=== PATIENT | female | born 1950 | race Caucasian/White ===

== ENCOUNTER 2016-09-24 11:52 | Emergency (ER) | payer BC ==
--- NOTE | 2016-09-24 11:42 | XRAY ---
Indication: Dyspnea on exertion. "Pounding heart.". Very low iron. Multiple contiguous axial images obtained through the chest using 80 cc Isovue 370 contrast and PE protocol. Comparison: None There is good opacification of the pulmonary arteries. There are nonoccluding pulmonary emboli in most of the segmental branches of all the lobes, right lung greater than left. Heart is not enlarged. Aorta is normal in course and caliber. Right suprahilar calcified node. No pathologic mediastinal/hilar lymphadenopathy. Small hiatal hernia. Examination of the lung parenchyma demonstrates minimal medial right lower lobe fibrosis/scarring. No suspicious pulmonary mass, infiltrate, consolidation, or effusion. Bony thorax intact with mild degenerative changes throughout the spine. Limited upper abdomen demonstrates splenic calcified granuloma. Impression: 1. Multiple nonoccluding bilateral pulmonary emboli. No distal pulmonary infarct. 2. Incidental small hiatal hernia and evidence for old granulomatous disease. Comment: Immediate telephone report was given to cross covering clinician, Erica Flores at 1132 hrs. on September 24, 2016. CT DI 28.08
[2016-09-24 12:19] LABS: Mean Cell Volume 83.3 fl (78-100); Mean Corpuscular Hemoglobin 24.5 pg (26-32); Mean Platelet Volume 10.6 fl (6-9.5); Platelet Count 285 K/mm3 (150-450); Red Blood Count 4.44 M/mm3 (4.1-5.4); White Blood Count 6.6 K/mm3 (4.0-10.5)
[2016-09-24 12:21] VITALS: O2SAT 97
[2016-09-24 12:35] LABS: INR 1.02 (0.8-3.0); PROTIME 11.5 SECONDS (9.95-12.35)
[2016-09-24 12:38] LABS: PTT 29.5 SECONDS (25.3-37.0)
[2016-09-24 12:43] LABS: ALBUMIN 3.6 g/dL (3.4-5.0); ALKALINE PHOSPHATASE 64 U/L (46-116); ANION GAP 15.3 MEQ/L (5-15); BLOOD UREA NITROGEN 25 mg/dL (9-20); CHLORIDE 104 mEq/L (98-107); Carbon Dioxide 24.9 mEq/L (21-32); Glucose 92 MG/DL (70-110); SGOT/AST 18 U/L (15-37); SGPT/ALT 21 U/L (12-78); SODIUM 140 mEq/L (136-145); Total Protein 7.3 gm/dL (6.4-8.2)
[2016-09-24 13:01] LABS: ANISOCYTOSIS 1+; BAND 2 % (0.0-2.0); Basophil 3 % (0.0-1.0); Eosinophil 4 % (0.00-3.0); Hypochromia 1+; Platelet Estimate NORMAL (NORMAL); Polychromasia 1+; Total Cells Counted 100
[2016-09-24] MEDS ORDERED: XARELTO 10 MG TABLET PO ONE (13:40)
--- NOTE | 2016-09-24 13:47 | ERPHSYRPT ---
- History of Present Illness Time Seen by Provider: 09/24/16 12:02 Source: patient, family () Patient Subjective Stated Complaint: BROUGHT OVER BY WC FROM [facility] FOR A DX OF PE , SOB FOR ABOUT A MONTH, WITH SOME WEAKNESS Triage Nursing Assessment: HERE FOR PE AND SHORTNESS OF BREATH Physician History: CC: pe Hx: 66 y/o patient of PRICILA Hedrick and Dr Díaz. She felt some SIU, chest tightness for the past one month. She was seen in office and attributed this to iron def. She had vacation in [place]- drove. Increased palpitations and some SIU and shortness of breath. Came today to have CTA and it was positive for multiple nonoccluding bilateral pulmonary emboli. No distal pulm infarct. She was sent to ER for evaluation. No new symptoms. She has remote hx of uterine CA 6 years ago. Has strong fam hx of thromboembolic disease in mother, sister, grandfather. She was tested negative for Factor V leidin def in the past. She tested positive for lupus anticoagulnat in the past. She has never been treated for DVT/PE. Allergies/Adverse Reactions: No Known Drug Allergies Allergy (Verified 09/24/16 12:15) Home Medications: Calcium Carb/Vit D3/Minerals [Calcium 600 + D Tablet] 2 each PO DAILY 01/18/12 [ History] Ferrous Sulfate [Iron] 325 mg PO DAILY 01/18/12 [History] Meloxicam 15 mg [Meloxicam 15 MG] 15 mg PO DAILY 01/18/12 [History] Potassium Chloride 10 Meq Tab* [Klor Con 10MEQ] 30 meq PO DAILY 01/18/12 [ History] Triamterene/Hydrochlorothiazid [Triamterene-Hctz 37.5-25 mg Cp] 1 each PO DAILY 01/18/12 [History] Verapamil HCl 360 mg PO DAILY 01/18/12 [History] Loratadine 10 mg [Claritin 10 mg] 10 mg DAILY 09/24/16 [History] Hx Tetanus, Diphtheria Vaccination/Date Given: Yes Hx Influenza Vaccination/Date Given: Yes Hx Pneumococcal Vaccination/Date Given: Yes (5 YEARS AGO) Immunizations Up to Date: Yes - Review of Systems Constitutional: Malaise, No Fever, No Chills Eyes: No Symptoms Ears, Nose, & Throat: No Symptoms Respiratory: Dyspnea on Exertion (SIU), No Cough Cardiac: Chest Pain, Palpitations Abdominal/Gastrointestinal: No Abdominal Pain All Other Systems: Reviewed and Negative - Past Medical History Pertinent Past Medical History: Yes Neurological History: No Pertinent History ENT History: No Pertinent History Cardiac History: Hypertension Respiratory History: No Pertinent History Endocrine Medical History: No Pertinent History Musculoskeletal History: Osteoarthritis GI Medical History: No Pertinent History History: No Pertinent History Psycho-Social History: No Pertinent History Female Reproductive Disorders: Uterine Cancer Other Medical History: BLOD DISORDER - Past Surgical History Past Surgical History: Yes Neuro Surgical History: No Pertinent History Cardiac: No Pertinent History Respiratory: No Pertinent History Gastrointestinal: No Pertinent History Genitourinary: No Pertinent History Musculoskeletal: Other Female Surgical History: Hysterectomy Other Surgical History: bunionectomy left foot and hammertoe left,right hammertoe, RIGHT FOOT SURGERY - Social History Smoking Status: Never smoker Exposure to second hand smoke: No Drug Use: none Patient Lives Alone: No - Female History Hx Last Menstrual Period: POST - Nursing Vital Signs Nursing Vital Signs: Initial Vital Signs Pulse Rate 63 Respiratory Rate 18 Blood Pressure [Left Arm] 147/67 Pain Intensity 0 - Physical Exam General Appearance: alert, other (pleasant lady) Eye Exam: PERRL/EOMI Ears, Nose, Throat Exam: normal ENT inspection, moist mucous membranes Neck Exam: normal inspection, non-tender, supple Respiratory Exam: normal breath sounds Cardiovascular Exam: regular rate/rhythm Gastrointestinal/Abdomen Exam: soft, No tenderness, No distention Extremity Exam: normal inspection, normal range of motion, No calf tenderness, No pedal edema Neurologic Exam: alert, oriented x 3, cooperative, electromedical equipment technician II-XII nml as tested, nml station & gait, sensation nml, No motor deficits Skin Exam: warm, dry, No rash SpO2 Interpretation: normal SpO2: 97 Oxygen Delivery: Room Air - Course Nursing assessment & vital signs reviewed: Yes EKG Interpreted by Me: RATE (61), Sinus Rhythm, NORMAL AXIS, NORMAL INTERVALS ( QTc 430), NORMAL QRS, NORMAL ST-T Ordered Tests: Active Orders 24 hr Category Date Time Status Behavioral Health Case Manager STAT Care 09/24/16 12:10 Active EKG-ER Only STAT Care 09/24/16 12:10 Active IV Insertion STAT Care 09/24/16 12:10 Active Pulse Oximetry (ED) STAT Care 09/24/16 12:10 Active CHEST WITH CONTRAST [CT] Routine Exams 09/24/16 Completed CBC W DIFF Stat Lab 09/24/16 12:00 Completed CMP Stat Lab 09/24/16 12:00 Completed Manual Differential NC Stat Lab 09/24/16 12:00 Completed PROTIME WITH INR Stat Lab 09/24/16 12:00 Completed PTT Stat Lab 09/24/16 12:00 Completed Lab/Rad Data: Laboratory Result Diagrams 09/24/16 12:00 09/24/16 12:00 Laboratory Results 09/24/16 09/24/16 09/24/16 Range/Units 12:00 12:00 12:00 WBC 6.6 (4.0-10.5) K/mm3 RBC 4.44 (4.1-5.4) M/mm3 Hgb 10.9 L (12.0-16.0) gm/dl Hct 37.0 (35-47) % MCV 83.3 (78-100) fl MCH 24.5 L (26-32) pg MCHC 29.5 L (32-36) g/dl Plt Count 285 (150-450) K/mm3 MPV 10.6 H (6-9.5) fl Segmented Neutrophils 62 (36.0-66.0) % Band Neutrophils 2 (0.0-2.0) % Lymphocytes (Manual) 21 L (24-44) % Monocytes (Manual) 8 (0.0-12.0) % Eosinophils (Manual) 4 H (0.00-3.0) % Basophils (Manual) 3 H (0.0-1.0) % Differential Comment ABNORMAL Platelet Estimate NORMAL (NORMAL) Polychromasia 1+ Hypochromasia 1+ Anisocytosis 1+ INR 1.02 (0.8-3.0) APTT 29.5 (25.3-37.0) SECONDS Sodium 140 (136-145) mEq/L Potassium 4.0 (3.5-5.1) mEq/L Chloride 104 (98-107) mEq/L Carbon Dioxide 24.9 (21-32) mEq/L Anion Gap 15.3 H (5-15) MEQ/L BUN 25 H (9-20) mg/dL Creatinine 0.92 (0.55-1.30) mg/dl Estimated GFR > 60 ML/MIN Glucose 92 (70-110) MG/DL Calcium 9.4 (8.5-10.1) mg/dL Total Bilirubin 0.40 (0.2-1.0) mg/dL AST 18 (15-37) U/L ALT 21 (12-78) U/L Alkaline Phosphatase 64 (46-116) U/L Serum Total Protein 7.3 (6.4-8.2) gm/dL Albumin 3.6 (3.4-5.0) g/dL - Progress Progress Note: 09/24/16 13:[address] Anderson who advised ok to follow up with Dr díaz since pt requests. He advised likely treat with xarelto. Called Dr Díaz and he advised start xarelto and office followup. Explained plan and findings to pt and . Discussed risks of bleeding, no good reversal agent with these blood thinners. Counseled pt/family regarding: lab results, diagnosis, need for follow-up, rad results - Departure Time of Disposition: 13:47 Departure Disposition: Home Clinical Impression: Pulmonary embolism Qualifiers: Pulmonary embolism type: other Chronicity: unspecified Acute cor pulmonale presence: without acute cor pulmonale Qualified Code(s): I26.99 - Other pulmonary embolism without acute cor pulmonale Condition: Stable Critical Care Time: No Referrals: JESS HEDRICK [Primary Care Provider] - YOVANNY DÍAZ [CONSULTING PHYSICIAN] - Instructions: Pulmonary Embolism, Rivaroxaban. Additional Instructions: Rx xarelto to start. Call Dr Díaz office to arrange follow up in 1-2 weeks. Follow up for anemia. Return for increased difficulty breathing or concerns. Stop meloxicam. Prescriptions: Rivaroxaban [Xarelto] 15 mg PO BID #42 tablet
[2016-09-24 13:58] VITALS: BP 132/75; PULSE 70
== END 2016-09-24 13:59 | disposition home or self-care (01) ==
LOC: ED 11:52 → EDSTATUS 11:52 → ED 13:59
DX: I26.99 Other pulmonary embolism without acute cor pulmonale (principal); R53.81 Other malaise; R06.09 Other forms of dyspnea; R07.9 Chest pain, unspecified; R00.2 Palpitations
CPT/HCPCS: 36000; 36415; 71260; 80053; 85025; 85610; 85730; 93005; 93041; 99283; A9270-GY

== ENCOUNTER 2016-10-18 11:47 | Day surgery (SDC) | payer BC ==
[~2016-10-18 11:47] MED LIST: DIPRIVAN 200 MG/20 ML IV ONE; Ketamine HCl 50 MG/ML IV ONE; Lactated Ringers 1,000 ML IV ONE; Lactated Ringers 1,000 ML IV SCH
[2016-10-18] MEDS ORDERED: Lactated Ringers 1,000 ML IV ONE (14:58)
--- NOTE | 2016-10-18 15:08 | OP ---
SURGERY DATE/TIME: 10/18/2016 1295 PREOPERATIVE DIAGNOSIS: Abdominal pain. POSTOPERATIVE DIAGNOSIS: Basically normal colonoscopic examination. There were moderate internal hemorrhoids. The rest of the examination was satisfactory. PROCEDURE: Colonoscopy complete to cecum. SURGEON: Felipe Olmos M.D. ANESTHESIA: MAC. COMPLICATIONS: None. CONDITION: Stable. INDICATION: A patient requiring evaluation. She had abdominal pain. She had nausea, vomiting and cramps. She has had pelvic radiation about five years ago. She had an EGD last week. DESCRIPTION OF PROCEDURE: She was taken to the endoscopy suite. Left lateral decubitus position. After suitable sedation obtained the scope advanced to the cecum. Base of the cecum and ileocecal valve was normal. Ascending, hepatic, transverse, splenic, descending was normal. Sigmoid normal. Rectum questionably minimally thickened post-radiation but not really discernible. There was moderate internal hemorrhoids otherwise satisfactory. IMPRESSION: Basically normal endoscopic examination except for internal hemorrhoids.
[2016-10-18 15:11] VITALS: O2SAT 97
[2016-10-18 15:32] VITALS: BP 137/76; PULSE 51
== END 2016-10-18 15:42 | disposition home or self-care (01) ==
LOC: SDC 11:47
PROVIDERS: ATTEND Surgery
PROC: 0DJD8ZZ Inspection of Lower Intestinal Tract, Via Natural or Artificial Opening Endoscopic (ICD-10-PCS; principal; 2016-10-18)
DX: K64.8 Other hemorrhoids (principal); D64.9 Anemia, unspecified
CPT/HCPCS: 00810; 45398; J2704

== ENCOUNTER 2018-02-14 11:39 | Emergency (ER) | payer MEDICARE, BC ==
[2018-02-14] MEDS ORDERED: SUBLIMAZE 100 MCG/2 ML IV ONE (11:44)
[2018-02-14] MEDS ORDERED: Zofran 4 MG/2 ML VIAL IV ONE (11:44)
[2018-02-14] MEDS ORDERED: Zofran 4 MG/2 ML VIAL ONE (11:58)
[2018-02-14] MEDS ORDERED: SUBLIMAZE 100 MCG/2 ML ONE (11:58)
--- NOTE | 2018-02-14 12:06 | ERPHSYRPT ---
- History of Present Illness Time Seen by Provider: 02/14/18 12:01 Source: patient Exam Limitations: no limitations Physician History: pt felt right knee cap dislocate laterally while in brace - no direct trauma but is scheduled for ortho surgery to meniscus in Dec did not fall Method of Injury: unknown Occurred: just prior to arrival Quality: constant, sharpness Severity of Pain-Max: severe Severity of Pain-Current: severe Lower Extremities Pain: knee: right Modifying Factors: Improves With: immobilization, movement Associated Symptoms: unable to bear weight, snapping sensation, popping sensation Allergies/Adverse Reactions: acetaminophen [From Vicodin] Adverse Reaction (Verified 02/14/18 12:14) Nausea and Vomiting hydrocodone [From Vicodin] Adverse Reaction (Verified 02/14/18 12:14) Nausea and Vomiting morphine Adverse Reaction (Verified 02/14/18 12:14) Nausea and Vomiting Home Medications: Potassium Chloride 10 Meq Tab* [Klor Con 10MEQ] 10 meq PO DAILY 01/18/12 [ History] Triamterene/Hydrochlorothiazid [Triamterene-Hctz 37.5-25 mg Cp] 37.5 each PO DAILY 01/18/12 [History] Verapamil HCl 360 mg PO DAILY 01/18/12 [History] Gabapentin [Neurontin] 600 mg PO HS 10/17/16 [History] Pantoprazole 20 mg [Protonix 20MG Tablet] 40 mg PO HS 10/17/16 [History] Rivaroxaban [Xarelto] 20 mg PO DAILY 10/17/16 [History] Valacyclovir HCl [Valacyclovir] 1,000 mg PO DAILY 10/17/16 [History] Acetaminophen [Acetaminophen Extra Strength] 500 mg PO DAILY 02/14/18 [History] Cetirizine HCl 10 mg PO DAILY 02/14/18 [History] Cholecalciferol (Vitamin D3) [D-2000] 2,000 unit PO DAILY 02/14/18 [History] Lisinopril [Zestril] 2.5 mg PO DAILY 02/14/18 [History] Melatonin 7.5 mg PO HS 02/14/18 [History] Omeprazole 20 MG [Prilosec 20 mg] 20 mg PO DAILY 02/14/18 [History] Hx Tetanus, Diphtheria Vaccination/Date Given: Yes Hx Influenza Vaccination/Date Given: Yes Hx Pneumococcal Vaccination/Date Given: Yes (5 YEARS AGO) - Review of Systems Constitutional: No Fever, No Chills Eyes: No Symptoms Ears, Nose, & Throat: No Symptoms Respiratory: No Cough, No Dyspnea Cardiac: No Chest Pain, No Edema, No Syncope Abdominal/Gastrointestinal: No Abdominal Pain, No Nausea, No Vomiting, No Diarrhea Genitourinary Symptoms: No Dysuria Musculoskeletal: Joint Pain, Joint Swelling, No Back Pain, No Neck Pain Skin: No Rash Neurological: No Dizziness, No Focal Weakness, No Sensory Changes Psychological: No Symptoms Endocrine: No Symptoms All Other Systems: Reviewed and Negative - Past Medical History Pertinent Past Medical History: Yes Neurological History: No Pertinent History ENT History: No Pertinent History Cardiac History: Hypertension Respiratory History: Pulmonary Embolism Endocrine Medical History: No Pertinent History Musculoskeletal History: Arthritis GI Medical History: No Pertinent History History: No Pertinent History Psycho-Social History: No Pertinent History Female Reproductive Disorders: Uterine Cancer Other Medical History: BLOD DISORDER - Past Surgical History Past Surgical History: Yes Neuro Surgical History: No Pertinent History Cardiac: No Pertinent History Respiratory: No Pertinent History Gastrointestinal: No Pertinent History Genitourinary: No Pertinent History Musculoskeletal: Other Female Surgical History: Hysterectomy Other Surgical History: bunionectomy left foot and hammertoe left,right hammertoe, RIGHT FOOT SURGERY (triple arthrodesis) - Social History Smoking Status: Never smoker Exposure to second hand smoke: No Drug Use: none Patient Lives Alone: No - Nursing Vital Signs Nursing Vital Signs: Initial Vital Signs Temperature 97.9 F 02/14/18 12:05 Pulse Rate 82 02/14/18 12:05 Blood Pressure 126/73 02/14/18 12:05 O2 Sat by Pulse Oximetry 95 02/14/18 12:05 Pain Scale Pain Intensity 6 - Physical Exam General Appearance: alert Eyes, Ears, Nose, Throat Exam: moist mucous membranes Neck Exam: non-tender, supple Cardiovascular/Respiratory Exam: chest non-tender, normal breath sounds, regular rate/rhythm, no respiratory distress Gastrointestinal/Abdominal Exam: non-tender, guarding Back Exam: normal inspection, No vertebral tenderness Hips Exam: bilateral: non-tender, normal inspection, normal range of motion, no evidence of injury Legs Exam: bilateral leg: non-tender, normal inspection, normal range of motion , no evidence of injury Knees Exam: right knee: bone tenderness, joint effusion, pain, soft tissue tenderness, swelling, left knee: non-tender, normal inspection, normal range of motion, no evidence of injury Ankle Exam: bilateral ankle: non-tender, normal inspection, normal range of motion, no evidence of injury Foot Exam: bilateral foot: non-tender, normal inspection, normal range of motion , no evidence of injury DTR - Lower Extremities Exam: knee (R): 2+, knee (L): 2+, ankle (R): 2+, ankle ( L): 2+ Neuro/Tendon Exam: normal sensation, normal motor functions Mental Status Exam: alert, oriented x 3, cooperative Skin Exam: normal color, warm, dry - Course Nursing assessment & vital signs reviewed: Yes - Radiology Exams Right Knee X-ray Interpretation: Interpreted by me, Reviewed by me, Other (concerning ofr nondisplaced superior patellar fx with subluxation; ) Ordered Tests: Active Orders 24 hr Category Date Time Status Immobilizer STAT Care 02/14/18 14:40 Active KNEE (3 VIEWS) Stat Exams 02/14/18 11:43 Completed Medication Summary Discontinued Medications Generic Name Dose Route Start Last Admin Trade Name Lazara PRN Reason Stop Dose Admin Fentanyl Citrate 75 mcg 02/14/18 11:44 02/14/18 11:59 Sublimaze 100 Mcg/2 Ml IV 02/14/18 11:45 75 mcg STAT ONE Administration Fentanyl Citrate Confirm 02/14/18 11:58 Sublimaze 100 Mcg/2 Ml Administered 02/14/18 11:59 Dose 100 mcg .ROUTE .STK-MED ONE Ondansetron HCl 4 mg 02/14/18 11:44 02/14/18 12:00 Zofran 4 Mg/2 Ml Vial IV 02/14/18 11:45 4 mg STAT ONE Administration Ondansetron HCl Confirm 02/14/18 11:58 Zofran 4 Mg/2 Ml Vial Administered 02/14/18 11:59 Dose 4 mg .ROUTE .STK-MED ONE - Progress Progress: improved, re-examined Progress Note: 02/14/18 15:25 discussed with pt various knee pathologies and options including consulting ortho and admission for pain control- she would like to try to make it on knee immobilizer and crutches and will return if any problems and will see her orth on saturday for recheck - discussed prob of meniscus and ligament injury and locking Counseled pt/family regarding: lab results, diagnosis, need for follow-up, rad results - Departure Time of Disposition: 15:27 Departure Disposition: Home Clinical Impression: right knee meniscus tear with locking an Condition: Good Critical Care Time: No Referrals: Provider,Unknown [Primary Care Provider] - Instructions: Internal Derangement of the Knee (DC), Meniscal Tear (DC), Dislocated Kneecap (DC) Additional Instructions: followup with your ortho dr this week and return meantime if any concenrs - including increased swelling , redness , fever, numbness or other concerns; Prescriptions: Tramadol HCl 50 mg [Ultram 50 mg] 50 mg PO Q8HPRN PRN #14 tablet PRN Reason: Pain
--- NOTE | 2018-02-14 12:39 | XRAY ---
Indication: Right knee pain. No known injury. Comparison: February 02, 2017. 3 views of the right knee again demonstrates mild osteopenia with new mild medial/lateral compartment degenerative joint space narrowing/spurring. No other bony, articular, or soft tissue abnormalities.
[2018-02-14 14:57] VITALS: BP 128/61; PULSE 73; O2SAT 98
== END 2018-02-14 16:05 | disposition home or self-care (01) ==
LOC: ED 11:39
DX: S83.206A Unspecified tear of unspecified meniscus, current injury, right knee, initial encounter (principal); Z79.899 Other long term (current) drug therapy
CPT/HCPCS: 73562; 96374; 96375; 99284; J2405; J3010; L1830

== ENCOUNTER 2019-03-07 10:09 | Emergency (ER) | payer MEDICARE, BC ==
[2019-03-07] MEDS ORDERED: Sodium Chloride 0.9% 1000 ML 1,000 ML IV STA (10:33)
[2019-03-07 10:49] LABS: Absolute Neutrophil Ct (ANC) 4.13 (1.4-6.9); BASOPHIL % 0.4 % (0.0-0.4); Basophil (Absolute #) 0.02 (0-0.4); Eosinophil % 2.8 % (0.00-5.0); Eosinophil (Absolute #) 0.15 (0-0.5); Hematocrit 43.2 % (35-47); Hemoglobin 13.7 gm/dl (12.0-16.0); Mean Cell Volume 94.5 fl (78-100); Mean Corpuscular Hgb Concent. 31.7 g/dl (32-36); Mean Platelet Volume 10.5 fl (6-9.5); Monocyte (Absolute #) 0.38 (0.0-1.3); Monocytes % 7.1 % (0.0-12.0); Neutrophil % 76.7 % (36.0-66.0); Platelet Count 203 K/mm3 (150-450); Red Blood Count 4.57 M/mm3 (4.1-5.4); Red Cell Distribution Width 14.5 % (11.5-14.0); White Blood Count 5.4 K/mm3 (4.0-10.5)
[2019-03-07] MEDS ORDERED: Sodium Chloride 0.9% 1000 ML 1,000 ML ONE (10:54)
[2019-03-07 11:02] LABS: INR 1.39 (0.8-3.0); PROTIME 15.8 SECONDS (9.95-12.35)
[2019-03-07 11:08] LABS: ALBUMIN 4.3 g/dL (3.5-5.0); BILIRUBIN,TOTAL 0.4 mg/dL (0.2-1.3); Creatinine 1 1.01 mg/dL (0.52-1.04); Potassium 3.9 mmol/L (3.5-5.1); Total Protein 7.7 g/dL (6.3-8.2)
--- NOTE | 2019-03-07 11:10 | ERPHSYRPT ---
- History of Present Illness Time Seen by Provider: 03/07/19 11:07 Source: patient, family Exam Limitations: no limitations Patient Subjective Stated Complaint: pt states about 0930 this AM her nose started bleeding after blowing her nose. Pt reports being on a blood thinner she takes HS and took last night. pt denies any ENT hx and or hx of nose bleeds. Pt states she was unable to get nose to stop bleeding. Triage Nursing Assessment: pt arrived holding a trash can about a 1/4 full of bloody tissues. right nares bleeding. Physician History: pt states about 0930 this AM her nose started bleeding after blowing her nose. Pt reports being on a blood thinner she takes HS and took last night. pt denies any ENT hx and or hx of nose bleeds. Pt states she was unable to get nose to stop bleeding. She is taking Xarelto 10 mg at HS Timing/Duration: abrupt onset Severity: moderate ENT Location: nose Prearrival Treatment: nasal packing Associated Symptoms: denies symptoms Allergies/Adverse Reactions: hydrocodone [From Vicodin] Adverse Reaction (Verified 03/07/19 10:29) Nausea and Vomiting morphine Adverse Reaction (Verified 03/07/19 10:29) Nausea and Vomiting Home Medications: Potassium Chloride 10 Meq Tab* [Klor Con 10MEQ] 5 meq PO DAILY 01/18/12 [History ] Triamterene/Hydrochlorothiazid [Triamterene-Hctz 37.5-25 mg Cp] 37.5 each PO DAILY 01/18/12 [History] Verapamil HCl 120 mg PO DAILY 01/18/12 [History] Gabapentin [Neurontin] 600 mg PO HS 10/17/16 [History] Pantoprazole 20 mg [Protonix 20MG Tablet] 40 mg PO HS 10/17/16 [History] Rivaroxaban [Xarelto] 20 mg PO DAILY 10/17/16 [History] Valacyclovir HCl [Valacyclovir] 2,000 mg PO DAILY 10/17/16 [History] Acetaminophen [Acetaminophen Extra Strength] 1,000 mg PO DAILY 02/14/18 [History ] Cetirizine HCl 10 mg PO DAILY 02/14/18 [History] Cholecalciferol (Vitamin D3) [D-2000] 2,000 unit PO DAILY 02/14/18 [History] Lisinopril [Zestril] 2.5 mg PO DAILY 02/14/18 [History] Melatonin 7.5 mg PO HS 02/14/18 [History] Omeprazole 20 MG [Prilosec 20 mg] 20 mg PO DAILY 02/14/18 [History] Hx Tetanus, Diphtheria Vaccination/Date Given: No Hx Influenza Vaccination/Date Given: Yes Hx Pneumococcal Vaccination/Date Given: No Immunizations Up to Date: Yes - Review of Systems Constitutional: No Fever, No Chills Eyes: No Symptoms Ears, Nose, & Throat: No Symptoms, Epistaxis (right anterior nostril) Respiratory: No Cough, No Dyspnea Cardiac: No Chest Pain, No Edema, No Syncope Abdominal/Gastrointestinal: No Abdominal Pain, No Nausea, No Vomiting, No Diarrhea Genitourinary Symptoms: No Dysuria Musculoskeletal: No Back Pain, No Neck Pain Skin: No Rash Neurological: No Dizziness, No Focal Weakness, No Sensory Changes Psychological: No Symptoms Endocrine: No Symptoms All Other Systems: Reviewed and Negative - Past Medical History Pertinent Past Medical History: Yes Neurological History: No Pertinent History ENT History: No Pertinent History Cardiac History: Other Respiratory History: Pulmonary Embolism Endocrine Medical History: No Pertinent History Musculoskeletal History: Arthritis GI Medical History: No Pertinent History History: No Pertinent History Psycho-Social History: No Pertinent History Female Reproductive Disorders: Uterine Cancer Other Medical History: RIGHT BRANCH BUNDLE BLOCKAGE. 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 - Past Surgical History Past Surgical History: Yes Neuro Surgical History: No Pertinent History Cardiac: No Pertinent History Respiratory: No Pertinent History Gastrointestinal: No Pertinent History Genitourinary: No Pertinent History Musculoskeletal: Other Female Surgical History: Hysterectomy Other Surgical History: bunionectomy left foot and hammertoe left,right hammertoe, RIGHT FOOT SURGERY (triple arthrodesis) Right knee replacement, torn rotator cuff repair - Social History Smoking Status: Never smoker Exposure to second hand smoke: No Drug Use: none Patient Lives Alone: No - Female History Hx Last Menstrual Period: years ago - Nursing Vital Signs Nursing Vital Signs: Initial Vital Signs Temperature 98.6 F 03/07/19 10:09 Pulse Rate 101 H 03/07/19 10:09 Respiratory Rate 20 03/07/19 10:09 Blood Pressure 133/85 03/07/19 10:09 O2 Sat by Pulse Oximetry 96 03/07/19 10:09 Pain Scale Pain Intensity 0 - Physical Exam General Appearance: no apparent distress, alert Eye Exam: bilateral eye: PERRL, EOMI Nasal Exam: normal inspection, dried blood Throat Exam: pharynx normal, moist mucus membranes, No tonsillar exudate Neck Exam: supple Cardiovascular/Respiratory Exam: normal breath sounds, regular rate/rhythm Abdominal Exam: non-tender, soft Neurologic Exam: alert, oriented x 3, sensation nml, No motor deficits Skin Exam: normal color, warm, dry SpO2: 96 - Course Nursing assessment & vital signs reviewed: Yes Ordered Tests: Active Orders 24 hr Category Date Time Status Apply Nose Clip STAT Care 03/07/19 10:33 Active CBC W DIFF Stat Lab 03/07/19 10:33 Completed CMP Stat Lab 03/07/19 10:33 Completed PROTIME WITH INR Stat Lab 03/07/19 10:33 Completed Medication Summary Discontinued Medications Generic Name Dose Route Start Last Admin Trade Name Freq PRN Reason Stop Dose Admin Sodium Chloride 1,000 mls @ 999 mls/hr 03/07/19 10:33 03/07/19 11:57 Sodium Chloride 0.9% 1000 Ml IV 03/07/19 11:33 Infused .Q1H1M STA Infusion Sodium Chloride Confirm 03/07/19 10:54 Sodium Chloride 0.9% 1000 Ml Administered 03/07/19 10:55 Dose 1,000 mls @ ud .ROUTE .K-MED ONE Lab/Rad Data: Laboratory Result Diagrams 03/07/19 10:33 03/07/19 10:33 Laboratory Results 03/07/19 03/07/19 03/07/19 Range/Units 10:33 10:33 10:33 WBC 5.4 (4.0-10.5) K/mm3 RBC 4.57 (4.1-5.4) M/mm3 Hgb 13.7 (12.0-16.0) gm/dl Hct 43.2 (35-47) % MCV 94.5 (78-100) fl MCH 30.0 (26-32) pg MCHC 31.7 L (32-36) g/dl RDW 14.5 H (11.5-14.0) % Plt Count 203 (150-450) K/mm3 MPV 10.5 H (6-9.5) fl Gran % 76.7 H (36.0-66.0) % Eos # (Auto) 0.15 (0-0.5) Absolute Lymphs (auto) 0.70 L (1.0-4.6) Absolute Monos (auto) 0.38 (0.0-1.3) Lymphocytes % 13.0 L (24.0-44.0) % Monocytes % 7.1 (0.0-12.0) % Eosinophils % 2.8 (0.00-5.0) % Basophils % 0.4 (0.0-0.4) % Absolute Granulocytes 4.13 (1.4-6.9) Basophils # 0.02 (0-0.4) PT 15.8 H (9.95-12.35) SECONDS INR 1.39 (0.8-3.0) Sodium 144 (137-145) mmol/L Potassium 3.9 (3.5-5.1) mmol/L Chloride 108 H (98-107) mmol/L Carbon Dioxide 26 (22-30) mmol/L Anion Gap 14.0 (5-15) MEQ/L BUN 25 H (7-17) mg/dL Creatinine 1.01 (0.52-1.04) mg/dL Estimated GFR 58.3 ML/MIN Glucose 103 (74-106) mg/dL Calcium 10.0 (8.4-10.2) mg/dL Total Bilirubin 0.40 (0.2-1.3) mg/dL AST 32 (14-36) U/L ALT 22 (0-35) U/L Alkaline Phosphatase 70 (38-126) U/L Serum Total Protein 7.7 (6.3-8.2) g/dL Albumin 4.3 (3.5-5.0) g/dL - Progress Progress: improved Progress Note: 03/07/19 11:09 gauze nasal packing applied in right nostril 03/07/19 12:06 nasal packs removed, bleeding has stopped. Another lubricant nasal pack applied. advised aboutremoving that nasal pack and check it for bleeding. I f oozing present then I teach him how to put another nasal pack. She is advised to hold xarelto for today. 03/07/19 13:44 Long nasal packing applied. Counseled pt/family regarding: lab results, diagnosis, need for follow-up - Departure Departure Disposition: Home Clinical Impression: Anterior epistaxis Condition: Stable Critical Care Time: No Referrals: MENDOZA MONZON NP [Primary Care Provider] - Instructions: Nosebleeds (DC) Additional Instructions: advise to keep nasal pack for six hours. Then I advised her to remove pack and look if still oozing, then applied another pack. Dont take Xarelto for today. Discharge/Care Plan BROOKE TARANGO was seen on 03/07/19 in the Emergency Room. The patient was counseled regarding Diagnosis,Lab results, Imaging studies, need for follow up and when to return to the Emergency Room. Prescriptions given: Discharge Note I have spoken with the patient and/or caregivers. I have explained the patient' s condition, diagnosis and treatment plan based on the information available to me at this time. I have answered the patient's and/or caregiver's questions and addressed any concerns. The patient and/or caregivers have as good understanding of the patient's diagnosis, condition and treatment plan as can be expected at this point. The vital signs have been stable. The patient's condition is stable and appropriate for discharge from the emergency department. The patient will pursue further outpatient evaluation with the primary care physician or other designated or consulting physician as outlined in the discharge instructions. The patient and/or caregivers are agreeable to this plan of care and follow-up instructions have been explained in detail. The patient and/or caregivers have received these instruction. The patient/and or caregivers are aware that any significant change in condition or worsening of symptoms should prompt an immediate return to this or the closest emergency department or call 911.
[2019-03-07 12:19] VITALS: BP 117/71; PULSE 68
[2019-03-07 13:45] VITALS: O2SAT 96
== END 2019-03-07 13:53 | disposition home or self-care (01) ==
LOC: ED 10:09
DX: R04.0 Epistaxis (principal); Z79.01 Long term (current) use of anticoagulants; Z79.899 Other long term (current) drug therapy
CPT/HCPCS: 36415; 80053; 85025; 85610; 96360; 96374; 99284

== ENCOUNTER 2021-07-28 06:02 | Day surgery (SDC) | payer MEDICARE, BC ==
[2021-07-28] MEDS ORDERED: Lactated Ringers 1,000 ML IV SCH (06:30)
[2021-07-28] MEDS ORDERED: CLINDAMYCIN-D5W 900 MG/50 ML*** 900 MG/50 ML BAG IV SCH (06:30)
[2021-07-28] MEDS ORDERED: Pepcid 20 MG VIAL IV ONE (06:43)
[2021-07-28] MEDS ORDERED: Transderm Scop 1.5MG Patch TOP PRN (06:43)
[2021-07-28] MEDS ORDERED: Reglan 10 MG/2 ML IV ONE (06:43)
[2021-07-28] MEDS ORDERED: XYLOCAINE 1% HCL 20 ML MDV ONE (06:46)
[2021-07-28] MEDS ORDERED: BUPIVACAINE 0.5% VIAL IJ ONE (06:46)
[2021-07-28] MEDS ORDERED: Quelicin Fliptop 200 MG/10 ML ONE (06:54)
[2021-07-28] MEDS ORDERED: SUBLIMAZE 100 MCG/2 ML ONE ×3 (06:54→10:39)
[2021-07-28] MEDS ORDERED: Xylocaine-Mpf 2% 5 Ml Vial ONE (06:54)
[2021-07-28] MEDS ORDERED: Zofran 4 MG/2 ML VIAL ONE (06:54)
[2021-07-28] MEDS ORDERED: DIPRIVAN 200 MG/20 ML IV ONE (06:54)
[2021-07-28] MEDS ORDERED: Decadron 4 MG INJ ONE (06:54)
[2021-07-28] MEDS ORDERED: Versed 2 MG/2 ML Injection ONE (06:55)
[2021-07-28] MEDS ORDERED: OFIRMEV 100 ML IV ONE (07:05)
[2021-07-28] MEDS ORDERED: Pre-Attached Lta Kit TP ONE (07:05)
[2021-07-28] MEDS ORDERED: Ephedrine Sulfate 50 MG/ML ONE (07:41)
[2021-07-28] MEDS ORDERED: ATROPINE SULFATE 1MG ONE (07:45)
[2021-07-28] MEDS ORDERED: DEXMEDETOMIDINE 80 MCG/20ML-NS IV ONE (09:00)
--- NOTE | 2021-07-28 10:03 | XRAY ---
Indication: Right foot 1st-4th hammertoe repair. Intraoperative fluoroscopy provided for 91 seconds. 15 digital spot images submitted for interpretation ultimately demonstrates fusion 1st MTP with intact fixation plate/screws, 2nd metatarsal head osteotomy with intact screw, and fusion entire 2nd-4th phalanges with intact screws. Correlate with intraoperative findings/report.
[2021-07-28 11:19] VITALS: O2SAT 96
--- NOTE | 2021-07-28 11:48 | XRAY ---
91 seconds fluoroscopy time in surgery for hammertoe repairs to the right foot.
[2021-07-28 12:33] VITALS: BP 120/62; PULSE 57
--- NOTE | 2021-07-28 13:52 | OP ---
SURGERY DATE/TIME: 07/28/2021 0790 PREOPERATIVE DIAGNOSES: 1) Osteoarthritis first metaphalangeal joint right foot. 2) Hallux rigidus right first metaphalangeal joint. 3) Hammer toes 2, 3, 4 and 5 right foot. 4) Elongated metatarsal #2. 5) Pain right foot. POSTOPERATIVE DIAGNOSES: 1) Osteoarthritis first metaphalangeal joint right foot. 2) Hallux rigidus right first metaphalangeal joint. 3) Hammer toes 2, 3, 4 and 5 right foot. 4) Elongated metatarsal #2. 5) Pain right foot. PROCEDURES: 1) First metaphalangeal joint arthrodesis right foot. 2) Hammer toe corrections with proximal interphalangeal joint arthrodesis for digits 2, 3 and 4. 3) Derotational arthroplasty of the fifth digit. 4) Kalen osteotomy of the second metatarsal. SURGEON: Jose Kirk DPM. STORAGE WHARFAGE CLERK: None. ANESTHESIA: General plus a postoperative ankle block. See injectables for details. HEMOSTASIS: Ankle tourniquet set to 250 mm of Mercury for 87 total minutes. ESTIMATED BLOOD LOSS: Less than 20 cc. MATERIALS: 3-0 Nylon, 4-0 Monocryl, Demarcus ALPS first metatarsophalangeal joint plate with a 4.0 x 40 VPC compression screw, a 2.0 x 12 Tyber screw and two - 2.5 x 30 VPC screws and one - 2.5 x 28 VPC screw. INJECTABLES: 30 cc of 1:1 mixture of 1% lidocaine plain and 0.5% bupivacaine plain injected in an ankle block-type fashion postoperatively. INDICATION FOR SURGERY: Yolanda is a very pleasant 71-year-old female who presented to my office after multiple procedures to the bilateral lower extremities with a significant amount of pain and contractures to the right and left foot as a result of injury and age-related changes. The patient presented wanting to do bilateral intervention. Due to the fact that she has had significant amount of pain and contracture with ambulation and she would like to remain active in her life. She indicates that she would like both extremities done. However, the right foot due to the fact that this is the less extensive surgical intervention and she would be back on her feet within a relatively quicker amount of time, she would like to proceed with this intervention first. She understands all risks, benefits and complications of the surgical intervention. No guarantees were provided as to the outcome. Plenty of time was allowed for the patient to ask questions which were answered to the patient's apparent satisfaction. It is with that we decided to proceed. DESCRIPTION OF PROCEDURE AND FINDINGS: The patient is brought into the OR and placed on the OR table in the supine position. The patient was placed under general sedation. At this time a hip bump was placed under the ipsilateral hip and a well-padded ankle tourniquet was applied to the right lower extremity. The tourniquet was set to 250 mm of Mercury and the right lower extremity was prepped and draped in the typical sterile fashion. At this time attention was directed to the first metatarsophalangeal joint where an incision was made just medial to the extensor hallucis longus tendon where this was carried down through the fascial plane, up the extensor tendon and retracting laterally and making sure not to damage any neurovascular structures along the way. At this time attention was directed to the metatarsophalangeal joint where a J-stroke was performed at both sides of the joint to release the capsular structures. At this time the first metatarsal head was identified and the cartilage was denuded off of the first metatarsophalangeal joint. Following this the cartilage was resected off the proximal phalanx. The cartilage was then flushed out of this site and a 2.0 mm drill was utilized to fenestrate the articular surface. The edges of the bone were placed in adequate position and at this time a 4.0 x 40 VPC variable compression screw was introduced from distal medial to proximal lateral. First metaphalangeal joint ALPS Demarcus plate was introduced from the dorsal aspect and a combination of locking and nonlocking screws were utilized to secure the plate to the bone. Position was checked under fluoroscopy and deemed to be adequate at that time. At this time attention was directed to the dorsal aspect of digits 2, 3, 4 and 5 where a horizontal incision was made over the proximal interphalangeal joints. At this time, the bone was resected off of the distal aspect of the proximal interphalangeal joint and the bone was resected off of the base of the middle phalanx. At this time the sites were flushed for any remaining cartilage and a 2.5 variable compression screw was introduced in retrograde fashion from the distal tip of the toe into the base of the proximal phalanx. At this time position was deemed to be adequate. Decision was made to proceed with a Kalen osteotomy at the second metatarsal due to some dorsiflexion contracture of the second digit. Once the metatarsal head was migrated posteriorly the digit fell into the same plane as the remainder of the toe. At this time a derotational arthroplasty was performed at the fifth digit after sucking out the head of the metatarsal phalanx and the base of the middle phalanx. At this time copious amounts of sterile saline were utilized to flush the surgical site. 4-0 Monocryl was utilized to coapt the surgical incision on the subcutaneous layer. Following this a combination of 3-0 and 2-0 Nylon were utilized to coapt the surgical incision in a combined fashion with simple interrupted and horizontal mattress-type fashion. Following this the tourniquet was dropped. Total tourniquet time was 87 minutes. A dressing consisting of Betadine, Adaptic, 4x4, Kerlix and ALONSO was applied to the right lower extremity. The patient was then reversed from anesthesia and returned to the postoperative anesthesia care unit with vital signs stable and vascular status intact. The patient handled the procedure as well as the anesthesia without complications. Postoperative orders as indicated in the patient's discharge chart.
== END 2021-07-28 12:05 | disposition home or self-care (01) ==
LOC: SDC 06:02
PROVIDERS: ATTEND Podiatrist Foot & Ankle Surgery
DX: M19.071 Primary osteoarthritis, right ankle and foot (principal); M20.41 Other hammer toe(s) (acquired), right foot; M79.671 Pain in right foot; M21.41 Flat foot [pes planus] (acquired), right foot; M77.41 Metatarsalgia, right foot
CPT/HCPCS: 28285; 28308; 28750; 73620; 76000; 93005; C1713; J0330; J0461; J1100; J2250; J2405; J2704; J3010; A9270-GY

== ENCOUNTER 2021-10-17 06:18 | Day surgery (SDC) | payer MEDICARE, BC ==
[2021-10-17] MEDS ORDERED: Lactated Ringers 1,000 ML IV SCH (06:30)
[2021-10-17] MEDS ORDERED: DIPRIVAN 200 MG/20 ML IV ONE ×2 (07:45→07:54)
[2021-10-17] MEDS ORDERED: Xylocaine-Mpf 2% 5 Ml Vial ONE (07:45)
[2021-10-17 08:59] VITALS: O2SAT 97
[2021-10-17 09:00] VITALS: BP 151/79; PULSE 65
--- NOTE | 2021-10-17 10:21 | OP ---
SURGERY DATE/TIME: 10/17/2021 0752 PREOPERATIVE DIAGNOSIS: Anemia and heme-positive stools. POSTOPERATIVE DIAGNOSIS: Normal colon. PROCEDURE: Colonoscopy. SURGEON: Dr. Андрей Luna. ANESTHESIA: MAC. Medications given by anesthesia department. HISTORY: The patient is a 71-year-old white female presenting now for colonoscopic evaluation. Apparently her oncologist had been monitoring her blood count and it had been falling. He did a heme-test on stools and they returned positive. The patient was felt the need to have endoscopic evaluation. She was appraised of the risks of the procedure including the risk of perforation, phlebitis, untoward reaction to medication, bleeding and missed lesions. The patient verbalized her understanding and desired to have the procedure performed. DESCRIPTION OF PROCEDURE: The patient was given the medications by the anesthesia department. She had continuous pulse oximetry, ECG monitoring and intermittent blood pressure monitoring during the examination. She was placed in the left lateral decubitus position. A digital rectal examination was performed and revealed normal anal sphincter tone and no masses. The flexible Olympus pediatric colonoscope was used to intubate the rectum. A view of the colon was developed sequentially to the cecum. Upon insertion and withdrawal, including a retroflex view in the rectum, no mucosal lesions were encountered. The scope was removed from the patient who tolerated the procedure well and was sent back to OP recovery in good condition. The prep was noted to be fair to good.
== END 2021-10-17 09:00 | disposition home or self-care (01) ==
LOC: SDC 06:18
PROVIDERS: ATTEND Family Medicine
DX: D64.9 Anemia, unspecified (principal); K92.1 Melena
CPT/HCPCS: J2704

== ENCOUNTER 2023-01-04 05:30 | Day surgery (SDC) | payer MEDICARE, BC ==
[~2023-01-04 05:30] MED LIST changes: +CEFAZOLIN 2 GM-D5W BAG** 2 GM/50 ML ML IV ONE; +CEFAZOLIN 2 GM-D5W BAG** 2 GM/50 ML ML IV SCH; -DIPRIVAN 200 MG/20 ML IV ONE; -Ketamine HCl 50 MG/ML IV ONE
[2023-01-04] MEDS ORDERED: EXPAREL 133 MG/10 ML VIAL IJ ONE (05:31)
[2023-01-04 05:54] VITALS: RESP 16
[2023-01-04] MEDS ORDERED: BUPIVACAINE 0.5% VIAL IJ ONE (06:04)
[2023-01-04] MEDS ORDERED: SUBLIMAZE 100 MCG/2 ML ONE (06:10)
[2023-01-04] MEDS ORDERED: OFIRMEV 100 ML IV ONE (06:10)
[2023-01-04] MEDS ORDERED: Versed 2 MG/2 ML Injection ONE (06:10)
[2023-01-04] MEDS ORDERED: Pre-Attached Lta Kit TP ONE (06:11)
[2023-01-04] MEDS ORDERED: Marcaine Mpf 0.5% Vial 30 Ml ONE (06:11)
[2023-01-04] MEDS ORDERED: Transderm Scop 1.5MG Patch ONE (06:12)
[2023-01-04] MEDS ORDERED: Reglan 10 MG/2 ML ONE (06:12)
[2023-01-04] MEDS ORDERED: Pepcid 20 MG VIAL IV ONE ×2 (06:12→06:20)
[2023-01-04] MEDS ORDERED: Reglan 10 MG/2 ML IV ONE (06:20)
[2023-01-04] MEDS ORDERED: Transderm Scop 1.5MG Patch TOP ONE (06:20)
[2023-01-04] MEDS ORDERED: DIPRIVAN 200 MG/20 ML IV ONE (07:09)
[2023-01-04] MEDS ORDERED: Quelicin Fliptop 200 MG/10 ML ONE (07:10)
[2023-01-04] MEDS ORDERED: Xylocaine-Mpf 2% 5 Ml Vial ONE (07:10)
[2023-01-04] MEDS ORDERED: Zofran 4 MG/2 ML VIAL ONE (07:18)
[2023-01-04] MEDS ORDERED: Decadron 4 MG INJ ONE (07:18)
[2023-01-04] MEDS ORDERED: CLINDAMYCIN-D5W 900 MG/50 ML*** 900 MG/50 ML BAG IV ONE (07:34)
[2023-01-04] MEDS ORDERED: Ephedrine Sulfate 50 MG/ML ONE (07:43)
[2023-01-04] MEDS ORDERED: Lactated Ringers 1,000 ML IV ONE (08:51)
[2023-01-04] MEDS ORDERED: REMIFENTANIL HCL IV ONE (09:44)
[2023-01-04] MEDS ORDERED: DEXMEDETOMIDINE 80 MCG/20ML-NS IV ONE (10:56)
--- NOTE | 2023-01-04 11:40 | XRAY ---
Indication: Left foot Garcia osteotomy, hardware removal, 1st MTP arthrodesis, 3rd-5th hammertoe, and 3rd metatarsal floating osteotomy. Intraoperative fluoroscopy provided for 8 minutes 39 seconds. 33 digital spot images submitted for interpretation ultimately demonstrates anterior calcaneal osteotomy with bone plug, bone staple removal 1st proximal phalanx, 1st MTP arthrodesis with intact hardware, and 3rd/4th arthrodesis with intact hardware. Correlate with intraoperative findings/report.
[2023-01-04 12:41] VITALS: TEMP 98.9; O2SAT 93
[2023-01-04 12:53] VITALS: BP 104/60; PULSE 76
[2023-01-04 14:18] LABS: Appearance Clear (Clear); Bacteria Moderate /HPF (None Seen); Bilirubin Negative (Negative); Blood Negative (Negative); Epithelial Cells None Seen /HPF (None Seen); Glucose, Urine Negative (Negative); Hyaline Casts NONE SEEN /LPF (0-2); Ketones Negative (Negative); Leukocyte Esterase Small (Negative); Nitrite Negative (Negative); Ph 5.5 (4.6-8.0); Protein,Urine Dip Negative (Negative); RBC 0-2 /HPF (0-5); Urobilinogen 0.2 mg/dL (0.2); WBC 21-50 /HPF (0-5)
--- NOTE | 2023-01-04 16:36 | OP ---
SURGERY DATE: 01/04/2023 SURGERY TIME: 719 PREOPERATIVE DIAGNOSIS: 1. GASTROCNEMIUS EQUINUS. 2. PES PLANUS. 3. CALCANEAL VALGUS. 4. FOREFOOT VARUS. 5. HAMMERTOE. 6. METATARSAL DEFORMITY. POSTOPERATIVE DIAGNOSIS: 1. GASTROCNEMIUS EQUINUS, LEFT. 2. PES PLANUS. 3. CALCANEAL VALGUS. 4. FOREFOOT VARUS. 5. HAMMERTOE. 6. METATARSAL DEFORMITY. PROCEDURE: 1. GASTROCNEMIUS RESECTION, LEFT. 2. SWANN CALCANEAL OSTEOTOMY. 3. HARDWARE REMOVAL FIRST TARSOMETATARSAL JOINT. 4. HARDWARE REMOVAL PROXIMAL PHALANX. 5. FIRST METATARSOPHALANGEAL JOINT ARTHRODESIS. 6. FLOATING METATARSAL HEAD OSTEOTOMY OF THIRD METATARSAL. 7. HAMMERTOE CORRECTION, 3 AND 4. 8. DEROTATIONAL ARTHROPLASTY OF THE 5TH DIGIT. SURGEON: Jose Kirk D.P.M. HOME APPLIANCE INSTALLER: None. ANESTHESIA: General plus a preoperative femoral and popliteal block. See anesthesia report for details. HEMOSTASIS: A thigh tourniquet set to 325 mm Hg for 120 total tourniquet minutes. ESTIMATED BLOOD LOSS: Approximately 20 cc. MATERIALS: A 10 mm Swann wedge soaked in VMA, ALPS 0 degree 1st metatarsophalangeal joint arthrodesis plate with a 3.4 X 32 mm VPC screw, 2 cc of StrataGraft plus, one 2.5 VPC for the 3rd hammertoe and one 2.5 X 26 for the 4th hammertoe correction, 4-0 Monocryl, 2-0 Vicryl, and 3-0 and 4-0 Nylon. INJECTABLES: See anesthesia report for details. INDICATIONS FOR PROCEDURE: Yolanda is a very pleasant 72 year-old female very well known to my service. The patient has had surgery to her contralateral foot which is causing her a significant amount of pain and now she is completely free of pain. During the consultation, she did have pain to both feet. It was advised that we proceed with her right foot first as that would have been the easier procedure initially and she has since had all issues resolved. Initially, patient was planning on proceeding with the left foot very shortly thereafter. However, was diagnosed with breast cancer. She has since been cured and is now in remission. She has since been in remission and per her medic technician, her surgeon, and her primary care, she is stable for surgical intervention for her issues. In regards to the left lower extremity, the patient has had a number of procedures in the past with multiple providers. The discussion in regards to what errors were made were discussed with the patient and the goal of trying to reestablish a normal tripod position of the foot with a reconstruction procedure and working around the previous procedures was the plan. From that standpoint, the patient understands that this does require some time off of her foot and the use of allograft as well as the need to fuse certain joints. The patient was advised of all the risks, complications, and benefits of surgical intervention including, but not limited to, infection; hematoma or seroma; possibility of delayed wound healing; non-wound healing; possibility of failure of surgical intervention and need for surgical intervention again at a later date. No guarantees were provided as to the outcome of surgical intervention. In her specific case, reestablishing the biomechanics of the foot was the biggest concern. As a result, there are some variables that will have to depend on what we see intraoperatively. From that standpoint, some procedures may be added and some may be removed from the consent process. She understood all this and wished to proceed. Plenty of time was allowed for her to ask questions which were answered to her and her 's apparent satisfaction. Once again, no guarantees were provided as to the outcome of the procedure. DESCRIPTION OF PROCEDURE: The patient was brought into the PACU and a femoral and popliteal block were provided to the left lower extremity until the patient was adequately blocked. From that standpoint, the patient was brought to the OR. Placed on the OR table in the supine position. At this time, general anesthesia was administered until the patient was adequately sedated. A well-padded thigh tourniquet was applied to the patient's left thigh making sure to be as high up as possible. From that standpoint, the left lower extremity was prepped and draped in the usual sterile fashion and lowered onto the surgical field. At this time, a skin marker was utilized to find the palpable conley of the posteromedial aspect of the left calf where the muscle belly is prominent. Linear incision approximately 4 cm in length was made posterior to the course of the greater saphenous vein. From that standpoint, blunt dissection was carried down to the crural fascia. The crural fascia was then incised utilizing a 15 blade and the aponeurosis was identified. A pediatric speculum was introduced, rotated 90 degrees and opened visualizing excellently the aponeurosis of the gastrocnemius. From that standpoint, a blade was utilized to score the gastrocnemius in a sprayer type fashion and making sure that all of the aponeurosis was released at the lateral extent. The sural nerve was visualized and retracted out of the way. The foot was loaded and an improvement in the dorsiflexion was obtained. From that standpoint, copious amounts of sterile saline were utilized to flush the surgical site. 2-0 Vicryl was used to coapt the subcutaneous skin edges. The skin was then closed utilizing a 3-0 Nylon in the horizontal mattress type fashion. Following this, under direct visualization of fluoroscopy, the VMA was pooled and approximately 50 cc was removed from the calcaneus in the plantar posterior safe zone. From that standpoint, the Esmarch was utilized to exsanguinate the leg and tourniquet was inflated to 325 mm Hg. At this time, attention was directed under a calcaneal axial view to assess the medial calcaneus. In a loaded position and lining up the 2nd ray with the tibia it did seem that the calcaneus was in a neutral position and likely would not need the medial calcaneal displacement osteotomy. From that standpoint, we proceeded with the foot in the loaded position and saw a significant amount of talar coverage and a significant flap deformity that was proven primarily through adduction of the forefoot. The decision was made to proceed with an Swann calcaneal osteotomy without graft. At that time, under fluoroscopic guidance, incision was planned. The incision was carried down making sure not to injure any neurovascular structures along the way and protecting the peroneal tendons until the lateral aspect of the calcaneal wall was identified approximately 1.1-1.5 cm from the calcaneal cuboid articulation. An osteotome was utilized to score the lateral wall perpendicular to the weight-bearing surface of the calcaneus. From that standpoint, varying increasing sized osteotomes were introduced until the lateral aspect of the calcaneal wall was thick. The medial component of the calcaneus was intact. Trials were assessed. It was deemed that the 10 mm Swann wedge was appropriate. We soaked the 10 mm Swann wedge in VMA and introduced it making sure to not be within the subtalar joint and preventing any impingements while getting good contact to the perfusion site. From that standpoint, attention was directed to the forefoot. With the introduction of the graft, the forefoot plantar flexed at the 1st ray sufficiently in order to avoid having to go forward with the cotton osteotomy to plantar flex the 1st ray even more. From that standpoint, we proceeded with preparation for the 1st metatarsophalangeal joint where careful dissection was carried just medial to the extensor hallucis longus tendon. This was carried down making sure not to damage any neurovascular structures. From that standpoint, the patient did have a significant amount of scar tissue and a capsulotomy was performed at the 1st metatarsophalangeal joint revealing a significant amount of osteoarthritis. It was also assessed that the bone quality was quite poor. From that standpoint, the decision was made to proceed with use of 2 cc of StrataGraft in order to bridge any deficit due to the fact that the reamer was not able to be utilized because of the bone quality. Rongeur was utilized to remove the cartilage from both the proximal phalangeal base and the metatarsal head until cancellous bone was identified. Subchondral plate was completely gone off the metatarsal head due to the poor bone quality. From that standpoint, copious amounts of sterile saline were utilized to flush the site. A 2 mm drill was utilized to fenestrate and the bone surfaces were held in adequate position, however, not perfect due to the significant amount of bone loss and the osteoarthritis bone quality. The 1st metatarsophalangeal joint 0 degree ALPS plate was introduced along with a 3.4 X 32 mm VPC screw where we did have adequate fixation with the use of cancellous locking screws into the plate. This plan did change intraoperatively secondary to her poor bone quality. From that standpoint, position was assessed and deemed to be a significant improvement with the position of the 1st metatarsophalangeal joint in an adequate position. Prior to the 1st metatarsophalangeal joint the plate was tested for fit and even with the smallest plate, we did have to proceed with removal of the staple from the 1st phalanx as well as from the 1st tarsometatarsal joint which was performed through separate incisions utilizing a T12 drivers license examiner on a handle. From that standpoint, attention was directed to the plantar aspect of the forefoot where a plate was utilized to load the forefoot. However, there was significant improvement and tripod alignment of the foot relative to preoperatively. Decision was made to proceed with a floating metatarsal head osteotomy of the 3rd metatarsal which immediately alleviated the pressure and restored the tripod nature of the biomechanics in a loaded position. Capsular dissection was carried out to allow for some perfection of the contracture of the 3rd digit. Following this, in the same fashion of the 3rd and 4th digit, a horizontal incision was made over the proximal interphalangeal joint and the proximal head and the base of the middle phalanx were dissected and respectively were the 3rd and 4th, a 2.5 X 30 VPC and a 2.5 X 26 VPC were introduced retrograding down the tip of the toe into the proximal phalanx without violating the metatarsal plane. Following this, a derotational arthroplasty was carried out of the 5th digit and deemed to be in an adequate position when loaded. From that standpoint, all incisions flushed with a copious of sterile saline. All incisions were coapted with 4-0 Monocryl and 4-0 Nylon in a horizontal mattress type fashion. Following this, dressings were applied to the left lower extremity consisting of Betadine, Adaptic, 4 X 4, Kerlix, and a well-padded posterior splint with sugar tongue. The patient was then reversed from anesthesia and returned to the PACU with vital signs stable and vascular status intact. The patient handled the anesthesia as well as procedure without significant complication. Postoperative orders as indicated in the patient's discharge chart.
--- NOTE | 2023-01-07 13:34 | XRAY ---
Eight minutes and 39 seconds of fluoroscopy was used in surgery for a left foot Garcia osteotomy, hardware removal, 1st MTP arthrodesis, 3rd-5th hammertoe, and 3rd metatarsal floating osteotomy.
== END 2023-01-04 13:17 | disposition home or self-care (01) ==
LOC: SDC 05:30
PROVIDERS: ATTEND Podiatrist Foot & Ankle Surgery
DX: M21.6X2 Other acquired deformities of left foot (principal); M21.42 Flat foot [pes planus] (acquired), left foot; M21.172 Varus deformity, not elsewhere classified, left ankle; M20.42 Other hammer toe(s) (acquired), left foot; Z79.899 Other long term (current) drug therapy
CPT/HCPCS: 01474; 01480; 20680; 27687; 28285; 28300; 28308; 28750; 64447; 64450; 73630; 76000; 76937; 76942; 81001; 87077; 87086; 87186; 99100; C1713; C1762; C1889; J0330; J0690; J1100; J2250; J2405; J2704; J3010; L1830; A9270-GY

== ENCOUNTER 2023-03-01 07:11 | Day surgery (SDC) | payer MEDICARE, BC ==
[2023-03-01] MEDS ORDERED: CLINDAMYCIN-D5W 900 MG/50 ML*** 900 MG/50 ML BAG IV SCH (07:30)
[2023-03-01] MEDS ORDERED: Lactated Ringers 1,000 ML IV SCH (07:30)
[2023-03-01] MEDS ORDERED: Lactated Ringers 1,000 ML IV ONE ×2 (07:33→12:03)
[2023-03-01] MEDS ORDERED: CLINDAMYCIN-D5W 900 MG/50 ML*** 900 MG/50 ML BAG IV ONE (07:33)
[2023-03-01 07:49] LABS: Absolute Neutrophil Ct (ANC) 3.77 x10^3/uL (1.4-6.9); BASOPHIL % 0.8 % (0.0-0.4); Basophil (Absolute #) 0.04 x10^3/uL (0-0.4); Eosinophil % 2.7 % (0.00-5.0); Eosinophil (Absolute #) 0.13 x10^3/uL (0-0.5); Hematocrit 37.7 % (35-47); Hemoglobin 12.1 g/dL (12.0-16.0); IMMATURE GRAN # 0.01 x10^3u/L (0.00-0.03); IMMATURE GRAN % 0.2 % (0.00-0.4); Lymphocyte (Absolute #) 0.53 x10^3/uL (1.0-4.6); Lymphocytes % 10.8 % (24.0-44.0); Mean Cell Volume 104.4 fL (78-100); Mean Corpuscular Hemoglobin 33.5 pg (26-32); Mean Corpuscular Hgb Concent. 32.1 g/dL (32-36); Mean Platelet Volume 10.2 fL (7.5-11.0); Monocyte (Absolute #) 0.42 x10^3/uL (0.0-1.3); Monocytes % 8.6 % (0.0-12.0); Neutrophil % 76.9 % (36.0-66.0); Platelet Count 197 x10^3/uL (150-450); Red Blood Count 3.61 x10^6/uL (4.1-5.4); Red Cell Distribution Width 13.7 % (11.5-14.0); White Blood Count 4.9 x10^3/uL (4.0-10.5)
[2023-03-01 08:04] LABS: ALBUMIN 4.2 g/dL (3.5-5.0); ANION GAP 13.6 MEQ/L (5-15); BILIRUBIN,TOTAL 0.5 mg/dL (0.2-1.3); Calcium 9.9 mg/dL (8.4-10.2); Creatinine 1 0.94 mg/dL (0.52-1.04); EST GLOMERULAR FILTRATION RATE 65.3 ML/MIN; Potassium 4.1 mmol/L (3.5-5.1); Total Protein 7.4 g/dL (6.3-8.2)
[2023-03-01] MEDS ORDERED: XYLOCAINE 1% HCL 20 ML MDV ONE (08:11)
[2023-03-01] MEDS ORDERED: Marcaine Mpf 0.5% Vial 30 Ml ONE (08:11)
[2023-03-01] MEDS ORDERED: Transderm Scop 1.5MG Patch ONE (08:14)
[2023-03-01] MEDS ORDERED: Pepcid 20 MG VIAL IV ONE ×2 (08:14→08:18)
[2023-03-01] MEDS ORDERED: Transderm Scop 1.5MG Patch TOP PRN (08:18)
[2023-03-01 09:05] LABS: Slide Review 1 YES
[2023-03-01] MEDS ORDERED: DIPRIVAN 200 MG/20 ML IV ONE (09:35)
[2023-03-01] MEDS ORDERED: Decadron 4 MG INJ ONE (09:36)
[2023-03-01] MEDS ORDERED: Zofran 4 MG/2 ML VIAL ONE (09:36)
[2023-03-01] MEDS ORDERED: SUBLIMAZE 100 MCG/2 ML ONE ×2 (09:38→12:07)
[2023-03-01] MEDS ORDERED: Versed 2 MG/2 ML Injection ONE (09:39)
[2023-03-01] MEDS ORDERED: Zemuron 100 MG/10 ML ONE (09:40)
[2023-03-01] MEDS ORDERED: Xylocaine-Mpf 2% 5 Ml Vial ONE (09:41)
[2023-03-01] MEDS ORDERED: BRIDION 200MG/2ML IV ONE (09:41)
[2023-03-01] MEDS ORDERED: Ephedrine Sulfate 50 MG/ML ONE (10:21)
[2023-03-01] MEDS ORDERED: DEXMEDETOMIDINE 80 MCG/20ML-NS IV ONE (11:31)
--- NOTE | 2023-03-01 12:21 | XRAY ---
Indication: Left ankle/foot peroneal tendon rupture with possible allograft tendon and possible metatarsal head resection. Intraoperative fluoroscopy provided for 21 seconds. 6 digital spot images submitted for interpretation demonstrates partial excision distal 3rd metatarsal. Tip of metallic localizer lateral to base 5th metatarsal. Elsewhere remote 1st tarsometatarsal phalangeal and 3rd/4th arthrodesis all with intact hardware. Correlate with intraoperative findings/report.
[2023-03-01 13:48] VITALS: RESP 14; TEMP 96.7
[2023-03-01 14:07] VITALS: O2SAT 96
[2023-03-01] MEDS ORDERED: OXYCODONE-ACETAMINOPHEN 10-325 PO PRN (14:07)
[2023-03-01] MEDS ORDERED: OXYCODONE-ACETAMINOPHEN 10-325 ONE (14:13)
[2023-03-01 14:23] VITALS: BP 116/71; PULSE 63
--- NOTE | 2023-03-04 13:46 | OP ---
SURGERY DATE/TIME: 03/01/2023 0955 PREOPERATIVE DIAGNOSES: 1) Peroneus brevis tendon rupture. 2) Peroneus longus tendon rupture. 3) Metatarsalgia. 4) Pain left ankle. 5) Loss of function left ankle. 6) Forefoot overload. POSTOPERATIVE DIAGNOSES: 1) Peroneus brevis tendon rupture. 2) Peroneus longus tendon rupture. 3) Metatarsalgia. 4) Pain left ankle. 5) Loss of function left ankle. 6) Forefoot overload. PROCEDURES: 1) Tenodesis of peroneus longus to peroneus brevis. 2) Peroneus brevis tendon repair with 8 mm tibialis anterior Allograft. 3) Resection of third metatarsal head. SURGEON: Jose Kirk DPM. PIPE STEM REPAIRER: None. ANESTHESIA: General plus an intraoperative block. See injectables for details. HEMOSTASIS: Thigh tourniquet set to 325 mm of Mercury for a total of 115 total tourniquet minutes. ESTIMATED BLOOD LOSS: [id number] cc. MATERIALS: 8 mm tibialis anterior Allograft tendon with a 1.5 mm BroadBand, a 3 x 3 Tapestry, 4-0 Monocryl, 3-0 Nylon, two Suturegard, 2-0 Nylon. INJECTABLES: 30 cc of a 1:1 mixture of 1% lidocaine plain and 0.5% bupivacaine plain injected in an ankle block-type fashion to the left ankle. INDICATION FOR SURGERY: Yolanda Parisi is a very pleasant 72-year-old patient very well known to my service for surgical intervention to the right lower extremity which went successfully and plans were to shortly undergo surgical intervention of the left lower extremity as a revision to the previous surgery that she has had for bunion correction and a flat foot in the past which were unsuccessful. Unfortunately, the patient was diagnosed with cancer and underwent an extensive regimen over the course of the last year and a half prior to getting rescheduled. However, she has been successful in going into remission for the issue. From that standpoint decision was made to proceed with surgical intervention in which initially was a flat foot reconstruction. A first metatarsophalangeal joint arthrodesis and a forefoot correction with hammer toes and metatarsal osteotomies. Unfortunately in her postoperative course, the patient did suffer a peroneal tendon rupture this is not just isolated to the peroneus brevis or the peroneus longus however, this is both of the tendons that ruptured. From that standpoint, the decision was made to proceed with surgical intervention due to the fact that the patient had loss of function of the foot in eversion as well as residual pain underneath the forefoot where suspected nonunion occurred of the metatarsal osteotomy. From this standpoint all risks, complications and benefits of surgical intervention were discussed with the patient at this time including but not limited to infection, hematoma, seroma, possibility of failed surgical intervention, possible delayed healing of tendon, possible residual pain and possible weakness or loss of function resulting in the need for bracing. No guarantees were provided as to the outcome. However, the goal of the procedure is to restore function and reduce pain. The patient understands this. Plenty of time was allowed for the patient to ask questions which were answered to her apparent satisfaction. It is at this time we decided to proceed. DESCRIPTION OF PROCEDURE AND FINDINGS: The patient was brought into the OR and placed on the OR table in the supine position. At this time, general anesthesia was administered until the patient was sedated. A well-padded thigh tourniquet was applied to the patient's left thigh and the tourniquet was set to 325 mm of Mercury. At this time the left lower extremity was prepped and draped in the typical sterile fashion and lowered onto the surgical field. At this time, an Esmarch was utilized to exsanguinate the foot. Landmarks were identified. Tourniquet was inflated and a curvilinear incision was made from the posterior aspect of the fibula to styloid process of the fifth metatarsal. Very quickly just below the superior peroneal retinaculum the two peroneal tendons were identified both of which looked tremendously diseased. From that standpoint there was a significant deficit of approximately 5 cm present even with the tendon pulled to its extent. From that standpoint, major debridement of both the tendons and the diseased portions of the tendons were cleansed utilizing a combination of sharp and blunt dissection. Sural nerve was protected from the site of surgical intervention at this time. The distal remnant of the peroneus brevis was identified. Given the nature of the rupture of both tendons, Allograft was deemed necessary where an 8 mm tibialis anterior tendon with 1.5 BroadBand was utilized to act as the tenodesis. At this time decision was made to prepare the proximal tendon ends with resecting a portion of the tendon itself on the inner aspects of the tendon and sandwiching the tibialis anterior between these two edges whip stitching approximately 5 whip stitches through this end and tying this off to secure. From that standpoint this was tested and manually stressed getting excellent tension across this site. From that standpoint the distal remnant of the peroneus seemed viable enough with approximately 5 cm left of the tendon itself. The decision was made to proceed with a Pulvertaft weaving through the peroneus brevis with the Allograft, this was performed by whip stitching the end of the peroneus brevis and making slits through the Allograft Pulvertaft weaving this under maximal tension with the foot everted and dorsiflexed. From this standpoint another whip stitch was utilized to secure the graft. The foot was stressed in multiple positions and deemed to be in an adequate position and also the tendon to be under sufficient tension to provide for appropriate eversion of the forefoot. From that standpoint, 3 x 3 Tapestry was aligned over the suture site and sutured utilizing 2-0 Monocryl to help realign the collagen fibers of the tendon. From this standpoint attention was directed to the dorsal aspect of the foot where a linear incision was made in the footprint of the metatarsal osteotomy site. An extensor tendon lengthening took place and the metatarsal head was removed from the site from the apparent nonunion this was sent for pathologic assessment. At this time all incision sites were cleansed with copious amounts of sterile saline. 2-0 Vicryl, 4-0 Monocryl and Suturegard with 2-0 Nylon were utilized to coapt the subcutaneous skin edges. 3-0 Nylon was utilized in a horizontal mattress-type fashion to coapt the skin edges respectively. The patient was then dressed with iodine, Adaptic, 4x4, Kerlix and a well-padded posterior splint with the foot held in dorsiflexion and eversion. The patient was then reversed from anesthesia and returned to the postoperative anesthesia care unit with vital signs stable and vascular status intact. The patient handled the anesthesia as well as the procedure without significant complication. Postoperative orders as indicated in the patient's discharge chart.
--- NOTE | 2023-03-04 16:30 | XRAY ---
21 seconds of fluoroscopy was used in surgery for a left ankle/foot peroneal tendon rupture with possible allograft tendon and possible metatarsal head resection.
== END 2023-03-01 14:42 | disposition home or self-care (01) ==
LOC: SDC 07:11
PROVIDERS: ATTEND Podiatrist Foot & Ankle Surgery
DX: S86.312A Strain of muscle(s) and tendon(s) of peroneal muscle group at lower leg level, left leg, initial encounter (principal); M77.42 Metatarsalgia, left foot; M25.572 Pain in left ankle and joints of left foot; M21.6X2 Other acquired deformities of left foot; M25.372 Other instability, left ankle
CPT/HCPCS: 27659; 27691; 28122; 36415; 73630; 76000; 80053; 85025; 93005; C1713; C1762; J1100; J2250; J2405; J2704; J3010; A9270-GY

== ENCOUNTER 2023-07-04 14:06 | Day surgery (SDC) | payer MEDICARE, BC ==
[2012-01-21 09:38] VITALS: BP 95/59
[2023-07-04] MEDS ORDERED: Depo-Medrol 40 MG/ML IM ONE (14:07)
[2023-07-04] MEDS ORDERED: BUPIVACAINE 0.5% VIAL IJ ONE (14:07)
[2023-07-04] MEDS ORDERED: LIDOCAINE HCL 1% 50 MG/5 ML VL PF IJ ONE (14:07)
--- NOTE | 2023-07-04 20:43 | XRAY ---
Indication: Right shoulder and subacromial bursa injection. Intraoperative fluoroscopy provided for 23 seconds. 2 digital spot image submitted for interpretation demonstrates needle tip projecting over right glenohumeral joint superiorly. Second needle tip subacromial. Small amount of contrast injected for both needle tip placement. Correlate with intraoperative findings/report.
--- NOTE | 2023-07-05 10:12 | XRAY ---
23 seconds of fluoroscopy was used in surgery for a right intra-articular shoulder and right sub acromial bursa injection.
== END 2023-07-04 16:40 | disposition home or self-care (01) ==
LOC: SDC-PAIN 14:06
PROVIDERS: ATTEND Psychiatry & Neurology Pain Medicine
DX: M19.011 Primary osteoarthritis, right shoulder (principal)
CPT/HCPCS: 20610; 73030; 77002; J1010; J2001; Q9966; J1030